=== PATIENT | female | born 1945 | race Caucasian/White ===

== ENCOUNTER → 2017-09-04 10:22 | Outpatient (CLI) | payer OTHER | END | disposition home or self-care (01) | LOC: D.US 10:22 | DX: R10.11 Right upper quadrant pain (principal) ==

== ENCOUNTER 2018-05-22 06:48 | Day surgery (SDC) | payer MEDICARE ==
[2018-05-21 12:58] LABS: HEMATOCRIT 40.4 % (36.0-48.0); HEMOGLOBIN 13.7 g/dL (12-16); MCH 30.8 pg (26.0-34.0); MCHC 33.9 g/dL (31.0-37.0); MCV 90.8 fL (80.0-100.0); MEAN PLATELET VOLUME 10.9 fL (7.4-10.4); RBC 4.45 10x6/uL (4.00-5.40); RDW 13.5 % (11.5-14.5)
[~2018-05-22] VITALS: Ht 157.5 cm; Wt 79.1 kg
[~2018-05-22 06:48] MED LIST: ESTRACE1 MG PO; OMEPRAZOLE20 M1 PO; TRIAMTERENE-HCTZ 37.; VITAMIN D31000 UNIT PO; ZOFRAN4 MG PO
[2018-05-22 08:21] VITALS: BP 151/84; Ht 157.5 cm; Wt 79.1 kg
[2018-05-22] MEDS ORDERED: HYDROCODON-ACE1 EAC7 PO (09:32)
== END 2018-05-22 11:45 | disposition home or self-care (01) ==
LOC: D.OPS 06:48 → D.PAN 09:15 → D.OPS 09:15
PROVIDERS: Anesthesiology
DX: K80.20 Calculus of gallbladder without cholecystitis without obstruction (principal); I10 Essential (primary) hypertension; E78.00 Pure hypercholesterolemia, unspecified; Z01.812 Encounter for preprocedural laboratory examination